=== PATIENT | male | born 1955 | race African-American/Black ===

== ENCOUNTER 2016-09-03 12:39 | Emergency (ER) | payer OTHER ==
[~2016-09-03] VITALS: Ht 167.6 cm; Wt 68.0 kg
[2016-09-03 14:33] VITALS: BP 127/73
== END 2016-09-03 14:59 | disposition home or self-care (01) ==
LOC: ER 12:46
DX: I10 Essential (primary) hypertension (principal); K21.9 Gastro-esophageal reflux disease without esophagitis; K50.90 Crohn's disease, unspecified, without complications; E78.5 Hyperlipidemia, unspecified; Z88.0 Allergy status to penicillin; Z76.0 Encounter for issue of repeat prescription